=== PATIENT | male | born 1950 | race Caucasian/White ===

== ENCOUNTER 2019-03-14 00:03 | Outpatient (CLI) | payer MEDICARE ==
[2019-03-14 15:08] LABS: Bilirubin Negative (Negative); Blood, Urine Negative (Negative); Glucose, Urine (Dipstick) Negative (Negative); Leukocyte Negative (Negative); Nitrite Negative (Negative); Protein, Urine (Dipstick) Negative (Neg-Trace); Specific Gravity, Urine 1.027 (1.002-1.036)
[2019-03-14 15:09] LABS: #Eosinphils 0.4 thou/uL (0.0-0.7); #Lymphocytes 1.3 thou/uL (1.20-3.40); #Monocytes 0.5 thou/uL (0.11-0.59); #Neutrophils 4.3 thou/uL (1.40-6.50); %Basophils 0.5 % (0.0-1.0); %Eosinophils 6.1 % (0.0-10.0); %Lymphocytes 20.1 % (21.0-51.0); %Monocytes 7.8 % (0.0-10.0); %Neutrophils 65.5 % (42.0-75.0); Hemoglobin 14.2 g/dL (14.0-18.0); Mean Corpuscular HGB CONC 33.8 g/dL (32.0-36.0); Mean Corpuscular Hemoglobin 33.7 pg (27.0-31.0); Mean Corpuscular Volume 99.6 fL (78.0-98.0); Mean Platelet Volume 8.8 fL (7.4-10.4); Platelet Count 169 thou/uL (130-400); RBC Distribution Width 12.5 % (11.5-14.5); Red Blood Cell (RBC) Count 4.21 mill/uL (4.70-6.10); White Blood Cell (WBC) Count 6.6 thou/uL (4.8-10.8)
[2019-03-14 15:11] LABS: Bacteria/HPF None Seen HPF (None Seen); Hyaline Casts/LPF 0-3 HYALINE CAST LPF (0-3 Hyaline); Pathc Cast-AUWi Flag 0.13 (0-2.49); Squamous Epithelial None Seen HPF (0-3); WBC/HPF None Seen HPF (0-3)
[2019-03-14 15:15] LABS: Clarity Clear (Clear)
[2019-03-14 15:25] LABS: Anion Gap 14 mmol/L (10-20); BUN (Urea Nitrogen) 35 mg/dL (8.4-25.7); Calc. Creatinine Clearance 0 mL/min (70-130); Calcium 9.8 mg/dL (7.8-10.44); Carbon Dioxide 22 mmol/L (23-31); Chloride 108 mmol/L (98-107); Estimated GFR-MDRD 50; Glucose 98 mg/dL (80-115); Potassium 3.8 mmol/L (3.5-5.1); Sodium 140 mmol/L (136-145)
--- NOTE | 2019-03-16 13:49 | EKG ---
Test Reason : Blood Pressure : / mmHG Vent. Rate : 070 BPM Atrial Rate : 070 BPM P-R Int : 162 ms QRS Dur : 096 ms QT Int : 424 ms P-R-T Axes : 056 055 051 degrees QTc Int : 457 ms Normal sinus rhythm Normal ECG No previous ECGs available Confirmed by DR. Jose A OLIVER ([id number]) on 03/16/2019 1:49:32 PM Referred By: IZAIAH Confirmed By:DR. Jose A OLIVER
== END 2019-03-14 00:04 | disposition home or self-care (01) ==
LOC: LABBT 00:03
PROVIDERS: ATTEND Orthopaedic Surgery Hand Surgery
DX: Z01.818 Encounter for other preprocedural examination (principal); M18.12 Unilateral primary osteoarthritis of first carpometacarpal joint, left hand
CPT/HCPCS: 80048; 81001; 85025; 93005; 93010

== ENCOUNTER 2019-03-19 07:14 | Day surgery (SDC) | payer MEDICARE ==
[2019-03-14 14:10] VITALS: BMI 32.0
[2019-03-19] MEDS ORDERED: Fentanyl 100 MCG/2 ML VIAL ONE ×2 (08:31→12:24)
[2019-03-19] MEDS ORDERED: Midazolam HCl 2 mg/2 ml Vial ONE (08:31)
[2019-03-19] MEDS ORDERED: Bupivacaine PF 0.5% 30 ML VIAL ONE (09:02)
[2019-03-19] MEDS ORDERED: Bacitracin Zinc Ointment 30 gm TUBE ONE (09:02)
[2019-03-19] MEDS ORDERED: Sodium Chloride 0.9% 10 ML ONE (09:02)
[2019-03-19] MEDS ORDERED: Bupivacaine HCl 0.5%/Epinephrine 1:200,000/PF 30 ml Vial ONE (11:25)
[2019-03-19] MEDS ORDERED: Ondansetron PF 4 MG/2 ML Vial ONE (11:38)
[2019-03-19] MEDS ORDERED: Lidocaine 1% PF 5 ML VIAL ONE (11:38)
[2019-03-19] MEDS ORDERED: PROPOFOL 200 MG/20 ML VIAL ONE (11:38)
[2019-03-19] MEDS ORDERED: Dexamethasone 20 MG/5 ML VIAL ONE (11:38)
[2019-03-19] MEDS ORDERED: Ketorolac Tromethamine 30 MG/ML VIAL ONE (13:09)
--- NOTE | 2019-03-19 19:51 | RAD ---
FINGERS LEFT HAND: 03/19/19 Total of four views. Fluoroscopic views are presented from OR . INDICATIONS: Films during open reduction internal fixation procedure. FINDINGS/IMPRESSION: The films demonstrate pin overlying trapezium. POS: HANY
--- NOTE | 2019-03-19 20:38 | OP ---
DATE OF PROCEDURE: 03/19/2019 PREOPERATIVE DIAGNOSES: Left thumb carpometacarpal joint severe osteoarthritis, findings 70% trapezium and 60% base of thumb metacarpal eburnation/[id number] contact with joint narrowing and osteophytes. PROCEDURE PERFORMED: 1. Left thumb total trapeziectomy. 2. Left thumb carpometacarpal joint ligament replacement tendon position. 3. Left thumb flexor carpi radialis tendon transfer. 4. C-arm utilization. 5. Left upper extremity short-arm splint application. COMPLICATIONS: None. ANESTHESIA: By [place] Anesthesia as follows: 1. Preop block, supraclavicular. 2. Intra op 20 mL along the each of the incisions divided equally. 3. General LMA technique. TOURNIQUET TIME: 107 minutes. ESTIMATED BLOOD LOSS: 10 mL. DESCRIPTION OF PROCEDURE: After successful LMA technique anesthesia and general given preop, the patient had the incision outlined after a time-out was done and the site, side, and procedure matched the consent. We then outlined a curvilinear J-shaped incision along the base of the thumb metacarpal went as far ulnarly at the wrist flexion crease as the scaphoid tubercle. After inflation of the tourniquet and exsanguination of the limb, we carried this through skin, subcutaneous tissue until we had reached the cutaneous nerve interval between the median and radial nerve innervation. We then these, protecting all the nerve branches, released the fascia connecting the thenar muscles to the bone as well as to the abductor pollicis longus and then the abductor pollicis longus from the fascia and we were able to visualize the underlying dorsal radial carpometacarpal joint of the thumb. We then entered this sharply with a [place] blade, dissected it back approximately 1 cm and then tagged this with a 2-0 undyed Vicryl. We then completed our dissection until we reached enough point ulnarly that we could see the flexor carpi radialis and we released the sheath. We then released the flexor carpi radialis completely around the trapezium, released the capsule between the trapezium and the scaphoid and the trapezium and the trapezoid. After this, we protected the radial artery branches on the radial side and the flexor carpi radialis completely on the ulnar side until we freed all the capsule and bony connections of the trapezium. The trapezium had the erosions as did the base of the thumb as listed above in so we finished the osteophytectomy from around the base of the thumb on all sides, protected the extensor pollicis brevis tendon and nerve branches and then drilled a tunnel with a 2.5 drill bit, 1.5 cm distal to the base of the thumb metacarpal and came into the junction articular and subchondral bone. We then slowly increased this with 3.5 drill and then a curettes until we now had a full 3.5 mm hole tunnel. We then placed a #3 Ethibond deep in the posterior medial capsule right against the flexor carpi radialis tendon to be used for "anchovy" type weave of the flexor carpi radialis tendon after passing and securing. We then made two incisions, one at the superior edge of the musculotendinous junction, one in the midportion of the tendon along the flexor carpi radialis tendon, and carried through skin and subcutaneous tissue, identified the tendon, and released it from its underlying muscle belly in its origin and then trimmed it from excess muscle. We then brought it into the wrist wound, continued to reduce the size of the tendon. This was a large Rea and we used a 4-0 Vicryl undyed to have the tendon become small in profile. We then passed without complication through the drill hole, passed it underneath the abductor pollicis longus, and then with the appropriate tension on, reduced it to the point nearly anatomical with the base of the thumb and index finger metacarpal, restoring the bony [place] line. We then made sure the K-wires we passed was in normal position in frontal sagittal plane, it was, and so it was then cut after being bent slightly below the skin. We then under appropriate tension, tied the flexor carpi radialis harvested tendon at 5 different sites, beginning at the outlet from the hole, the abductor pollicis longus, and base capsule. This gave excellent tension after pinning. We took the remaining tendon and rolled it using two Nikita needles on the 3-0 Prolene previously placed to fill the gap. There was no hole seen. The patient then had the tourniquet deflated, hemostasis obtained, the wire was cut below the skin after being bent, retained hemostasis at the primary incision and then closed it first by using 2-0 Vicryl undyed to close the capsule near the anatomical, same 2-0 Vicryl undyed to close the fascia of the thenar muscle back to its origin, and then we were able to close the superficial wound for good hemostasis using a running 4-0 Monocryl and then a 4-0 nylon simple interrupted. A total of 10 more mL was given divided amongst the incisions, and a bulky dressing was applied with a short-arm splint. The patient left the operating room without evidence of anesthetic or operative complication. Job ID: [id number]
== END 2019-03-19 14:55 | disposition home or self-care (01) ==
LOC: SDC 07:14
PROVIDERS: ATTEND Orthopaedic Surgery Hand Surgery
PROC: 0LX80ZZ Transfer Left Hand Tendon, Open Approach (ICD-10-PCS; principal; 2019-03-19)
PROC: 0LU807Z Supplement Left Hand Tendon with Autologous Tissue Substitute, Open Approach (ICD-10-PCS; 2019-03-19)
PROC: 0RQT0ZZ Repair Left Carpometacarpal Joint, Open Approach (ICD-10-PCS; 2019-03-19)
DX: M18.12 Unilateral primary osteoarthritis of first carpometacarpal joint, left hand (principal); I25.10 Atherosclerotic heart disease of native coronary artery without angina pectoris; E78.00 Pure hypercholesterolemia, unspecified; Z79.02 Long term (current) use of antithrombotics/antiplatelets; Z79.82 Long term (current) use of aspirin; Z79.899 Other long term (current) drug therapy; Z88.5 Allergy status to narcotic agent; Z95.5 Presence of coronary angioplasty implant and graft
CPT/HCPCS: 76000; 88307; 88311; J0131; J0670; J0690; J1100; J1885; J2001; J2250; J2405; J2704; J3010; J3490; S0020